=== PATIENT | male | born 1970 | race Caucasian/White ===

== ENCOUNTER → 2018-04-20 | Outpatient (CLI) | payer BC ==
--- NOTE | 2018-04-20 10:05 | Diagnostic Imaging Report ---
PROCEDURE: CT urinary tract, rule out kidney stone. TECHNIQUE: Multiple contiguous axial images were obtained through the abdomen and pelvis without the use of intravenous contrast. INDICATION: Left flank pain and hematuria for 24 hours FINDINGS: The liver, spleen, pancreas and adrenals show no acute abnormality. The kidneys, ureters and bladder are normal. The appendix is normal. No acute bowel abnormality is seen. There is no free intraperitoneal air or fluid. IMPRESSION: No acute abnormality is seen. If hematuria persists, a contrasted study may be helpful for further evaluation. Dictated by: Dictated on workstation # [id number]
== END ==
LOC: RAD 08:58
DX: R31.9 Hematuria, unspecified (principal)
CPT/HCPCS: 74176

== ENCOUNTER 2018-05-07 05:46 | Outpatient (CLI) | payer BC ==
[~2018-05-07] VITALS: Ht 172.7 cm; Wt 98.4 kg
[2018-05-07] MEDS ORDERED: CYCL10TA9 PO (14:17)
[2018-05-07] MEDS ORDERED: DULO30CA48 PO (14:17)
[2018-05-07] MEDS ORDERED: LISI10TA2 PO (14:17)
[2018-05-07] MEDS ORDERED: ATOR20TA49 PO (14:17)
== END 2018-05-07 14:20 | disposition home or self-care (01) ==
LOC: PREOP 05:46
PROVIDERS: ATTEND Surgery
DX: Z01.818 Encounter for other preprocedural examination (principal)

== ENCOUNTER 2018-05-14 06:54 | Day surgery (SDC) | payer BC ==
[~2018-05-14] VITALS: Ht 172.7 cm; Wt 98.4 kg
[~2018-05-14 06:54] MED LIST: ATOR20TA49 PO; CYCL10TA9 PO; DULO30CA48 PO; LISI10TA2 PO
--- OUTSIDE RECORDS SUMMARY | 2018-05-14 06:57 | XMS REPORT ---
Author Author CONG REINA [facility] eClinicalWorks Address Unknown Phone Unavailable Care Team Providers Care Grain Broker Name Role Phone CONG REINA CP Unavailable Allergies No Known Allergies Problems Problem Type Condition ICD-9 Code Onset Dates Condition Status Assessment Dental examination V72.2 Active Medications No Known Medications Procedures Procedure Coding System Code Date Billing Notes on claim CPT-4 EC109 2015 Results No Known Results Summary Purpose eClinicalWorks Submission
--- OUTSIDE RECORDS SUMMARY | 2018-05-14 06:57 | XMS REPORT ---
Author Author CONG REINA [facility] eClinicalWorks Address Unknown Phone Unavailable Care Team Providers Care Manager Mission Name Role Phone CONG REINA CP Unavailable Allergies, Adverse Reactions, Alerts Substance Reaction Event Type N.K.D.A. Info Not Available Non Drug Allergy Problems Problem Type Condition Code Onset Dates Condition Status Assessment Dental examination Z01.20 Active Medications No Known Medications Procedures Procedure Coding System Code Date AMALGAM-TWO SURFACES PRIMARY/PERM CPT-4 D2150 Aug 25, 2015 AMALGAM-TWO SURFACES PRIMARY/PERM CPT-4 D2150 Aug 25, 2015 Vital Signs Date/Time: Aug 25, 2015 Blood Pressure Diastolic 96 mmHg Blood Pressure Systolic 128 mmHg Results No Known Results Summary Purpose eClinicalWorks Submission
--- OUTSIDE RECORDS SUMMARY | 2018-05-14 06:57 | XMS REPORT ---
Author Author CONG REINA [facility] eClinicalWorks Address Unknown Phone Unavailable Care Team Providers Care Print Binding Worker Name Role Phone CONG REINA CP Unavailable Allergies No Known Allergies Problems Problem Type Condition ICD-9 Code Onset Dates Condition Status Assessment Dental examination V72.2 Active Medications No Known Medications Procedures Procedure Coding System Code Date AMALGAM-FOUR/MORE SURF PRIM/PERM CPT-4 D2161 Jun 16, 2015 Results No Known Results Summary Purpose eClinicalWorks Submission
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
--- OUTSIDE RECORDS SUMMARY | 2018-05-14 06:57 | XMS REPORT ---
Author Author CONG REINA Organization eClinicalWorks Address Unknown Phone Unavailable Care Team Providers Care Technical Product Manager Name Role Phone CONG REINA CP Unavailable Allergies, Adverse Reactions, Alerts Substance Reaction Event Type Sulfamethoxazole-Trimethoprim Info Not Available Drug Allergy Problems Problem Type Condition Code Onset Dates Condition Status Assessment Dental examination Z01.20 Active Medications Medication Code System Code Instructions Start Date End Date Status Dosage Hydrocodone-Acetaminophen [facility] [id number] not defined Flexall [address] [facility] [id number] not defined Procedures Procedure Coding System Code Date JOHNNY [facility] DENTUR - RESIN BASE CPT-4 D5212 April 13, 2016 Results No Known Results Summary Purpose eClinicalWorks Submission
--- OUTSIDE RECORDS SUMMARY | 2018-05-14 06:57 | XMS REPORT ---
Author Author NIRANJAN SPEARS [facility] Address Unknown Care Team Providers Care Spinning Frame Tender Name Role Phone NIRANJAN SPEARS Unavailable PROBLEMS Type Condition ICD9-CM Code ANA36-VC Code Onset Dates Condition Status SNOMED Code Problem Obesity (BMI 30.0-34.9) E66.9 Active 665765762319460 ALLERGIES Substance Reaction Event Type Date Status Sulfamethoxazole-Trimethoprim Unknown Drug Allergy Aug, Active SOCIAL HISTORY No smoking Hx information available PLAN OF CARE Activity Details Follow Up prn Reason:deliver lower partial VITAL SIGNS MEDICATIONS No Known Medications RESULTS No Results PROCEDURES Procedure Date Ordered Related Diagnosis Body Site Dental no charge Sep 12, 2016 IMMUNIZATIONS No Known Immunizations
--- OUTSIDE RECORDS SUMMARY | 2018-05-14 06:57 | XMS REPORT ---
Author NIRANJAN Garg Organization eClinicalWorks Address Unknown Phone Unavailable Care Team Providers Care Haul Driver Name Role Phone NIRANJAN SPEARS CP Unavailable Allergies, Adverse Reactions, Alerts Substance Reaction Event Type Sulfamethoxazole-Trimethoprim Info Not Available Drug Allergy Problems Problem Type Condition Code Onset Dates Condition Status Assessment Dental examination Z01.20 Active Medications No Known Medications Procedures Procedure Coding System Code Date Dental no charge CPT-4 D0099 Jul 18, 2016 Vital Signs Date/Time: Jul 18, 2016 Blood Pressure Diastolic 76 mmHg Blood Pressure Systolic 121 mmHg Results No Known Results Summary Purpose eClinicalWorks Submission
--- OUTSIDE RECORDS SUMMARY | 2018-05-14 06:57 | XMS REPORT ---
Author Author NIRANJAN SPEARS [facility] Address Unknown Care Team Providers Care Manager Research Development Name Role Phone NIRANJAN SPEARS Unavailable PROBLEMS Type Condition ICD9-CM Code JAK72-LI Code Onset Dates Condition Status SNOMED Code Problem Obesity (BMI 30.0-34.9) E66.9 Active 283211077447339 ALLERGIES Substance Reaction Event Type Date Status Sulfamethoxazole-Trimethoprim Unknown Drug Allergy Sep, Active SOCIAL HISTORY No smoking Hx information available PLAN OF CARE Activity Details Follow Up prn Reason:PROPHY VITAL SIGNS MEDICATIONS No Known Medications RESULTS No Results PROCEDURES Procedure Date Ordered Related Diagnosis Body Site Dental no charge Oct 11, 2016 IMMUNIZATIONS No Known Immunizations
--- OUTSIDE RECORDS SUMMARY | 2018-05-14 06:57 | XMS REPORT ---
Author Author GENO GUSTAFSON Organization [facility] Address [address] [place] [address] Care Team Providers Care Parks And Recreation Manager Name Role Phone GENO GUSTAFSON Unavailable PROBLEMS Type Condition ICD9-CM Code TWS95-YL Code Onset Dates Condition Status SNOMED Code Problem Obesity (BMI 30.0-34.9) E66.9 Active [id number] ALLERGIES Substance Reaction Event Type Date Status Sulfamethoxazole-Trimethoprim Unknown Drug Allergy February, Active SOCIAL HISTORY Never Assessed PLAN OF CARE Activity Details Follow Up prn Reason: VITAL SIGNS Height 68 in 2017-03-17 Weight 218.6 lbs 2017-03-17 Temperature 97.0 degrees Fahrenheit 2017-03-17 Heart Rate 60 bpm 2017-03-17 Respiratory Rate 2017-03-17 BMI 33.23 kg/m2 2017-03-17 Blood pressure systolic 120 mmHg 2017-03-17 Blood pressure diastolic 74 mmHg 2017-03-17 MEDICATIONS Medication Instructions Dosage Frequency Start Date End Date Duration Status Clindamycin HCl 300 MG Orally every 8 hrs 1 capsule 8h February,February 10 days Active RESULTS Name Result Date Reference Range A1C (IN HOUSE) 2017-03-17 A1C IN HOUSE 5.6 4.3 - 5.6 % Previous A1c NA Lot [id number] Exp date 2018-10 PROCEDURES Procedure Date Ordered Result Body Site GLYCATED HEMOGLOBIN TEST March 17, 2017 IMMUNIZATIONS No Known Immunizations MEDICAL (GENERAL) HISTORY Type Description Date Medical History Arthritis Medical History Back trouble Medical History Eye socket injuri Medical History Liver Diseare Surgical History Liver tumor removed Surgical History Tonsilectomy Surgical History eye socket Hospitalization History surgeries
[2018-05-14] MEDS ORDERED: LACTATED RINGERS 1,000 ML IV ONE (07:02)
[2018-05-14] MEDS ORDERED: LACTATED RINGERS 1,000 ML IV STA (07:15)
[2018-05-14 07:18] VITALS: BP 120/85
[2018-05-14] MEDS ORDERED: PROPOFOL INJECTION 50 ML IV ONE (07:24)
[2018-05-14] MEDS ORDERED: MIDAZOLAM 2 MG/2 ML (VERSED) VIAL ONE (07:25)
--- NOTE | 2018-05-14 08:10 | Progress Note-Pre Operative ---
Pre-Operative Progress Note H&P Reviewed The H&P was reviewed, patient examined and no changes noted. Date Seen by Provider: May 14, 2018 Time Seen by Provider: 08:00 Date H&P Reviewed: May 14, 2018 Time H&P Reviewed: 08:00 Pre-Operative Diagnosis: screening colonoscopy ADAMS VILLAREAL DO May 14, 2018 08:10
--- NOTE | 2018-05-14 08:54 | Progress Note-Post Operative ---
Post-Operative Progess Note Surgeon (s)/Criminal Researcher (s) Surgeon ADAMS VILLAREAL DO Criminal Researcher: na Pre-Operative Diagnosis screening colonoscopy Post-Operative Diagnosis cecal and rectal polyp Procedure & Operative Findings Date of Procedure 05/14/18 Procedure Performed/Findings colonoscopy with hot bx polypectomy x 2 Anesthesia Type per control specialist Estimated Blood Loss Estimated blood loss (mL): none Specimens/Packing Specimens Removed cecal polyp, rectal polyp ADAMS VILLAREAL DO May 14, 2018 08:54
--- NOTE | 2018-05-14 08:56 | Discharge Inst-Simple/Standard ---
Discharge Inst-Standard Patient Instructions/Follow Up Plan of Care/Instructions/FU: 2 weeks Nishi Activity as Tolerated: Yes Discharge Diet: Regular Diet ADAMS VILLAREAL DO May 14, 2018 08:56
[2018-05-14 09:10] VITALS: BP 131/75
[2018-05-14 09:30] VITALS: BP 134/78
[2018-05-14 10:17] VITALS: BP 134/78
--- NOTE | 2018-05-14 13:11 | Anesthesia-General Post-Op ---
MAC Patient Condition Mental Status/LOC: Same as Preop Cardiovascular: Satisfactory Nausea/Vomiting: Absent Respiratory: Satisfactory Pain: Controlled Complications: Absent Post Op Complications Complications None Follow Up Care/Instructions Patient Instructions None needed. Anesthesiology Discharge Order Discharge Order Patient is doing well, no complaints, stable vital signs, no apparent adverse anesthesia problems. No complications reported per nursing. LEONARD CRABTREE CRNA May 14, 2018 13:10
--- NOTE | 2018-05-14 14:33 | OPERATIVE REPORT ---
DATE OF SERVICE: 05/14/2018 PREOPERATIVE DIAGNOSIS: Screening colonoscopy. POSTOPERATIVE DIAGNOSIS: Colon polyps of cecum and rectum. PROCEDURE: Colonoscopy with hot biopsy polypectomy x2. SURGEON: Adams Almodovar DO ANESTHESIA: Per PROFESSOR OF FOREST PLANNING. ESTIMATED BLOOD LOSS: None. COMPLICATIONS: None. INDICATIONS: The patient is a 48-year-old male due for screening colonoscopy. He understands risks and benefits of procedure and wished to proceed with procedure. Consent was signed on the chart. DESCRIPTION OF PROCEDURE: The patient was taken to the endoscopy suite, placed in left lateral recumbent position. Timeout was performed. Digital rectal exam was performed. There were no palpable polyps, masses or ulcerations. Scope was inserted in the rectum as well as cecum with minimal difficulty. Prep was adequate. Small polyp in the cecum, which hot biopsy polypectomy was performed. Scope was then slowly retracted back. There were no polyps, masses or ulcerations within the ascending, transverse and descending colon. Within the sigmoid colon, a minimal amount of diverticulosis present. Scope was continuously retracted in the rectum where another small polyp was present, which hot biopsy polypectomy was performed. Scope was retroflexed noting no other pathology. Scope was returned to its normal position, slowly withdrawn until completely removed. The patient tolerated procedure well without any complications, taken to recovery room in stable condition. RECOMMENDATIONS: The patient was recommended repeat colonoscopy in 5 years. If he has any problems prior to that, he will be reevaluated at that time. He will see us in the office in two weeks to discuss pathology. The patient also was recommended high-fiber diet due to minimal diverticulosis. Job ID: [id number] DocumentID: [id number] Dictated Date: 05/14/2018 08:58:36 Business Economist Date: 05/14/2018 14:32:25 Dictated By: ADAMS ALMODOVAR DO
== END 2018-05-14 09:45 | disposition home or self-care (01) ==
LOC: ENDO 06:54
PROVIDERS: ATTEND Surgery
DX: Z12.11 Encounter for screening for malignant neoplasm of colon (principal); K63.5 Polyp of colon; K62.1 Rectal polyp; I10 Essential (primary) hypertension

== ENCOUNTER 2018-07-23 16:00 | Outpatient (RCR) | payer BC | END 2018-07-29 13:26 | disposition home or self-care (01) | PROVIDERS: ATTEND Nurse Practitioner | DX: M51.16 Intervertebral disc disorders with radiculopathy, lumbar region (principal) ==

== ENCOUNTER 2018-08-30 16:12 | Outpatient (RCR) | payer BC | END 2018-09-18 14:23 | disposition home or self-care (01) | PROVIDERS: ATTEND Nurse Practitioner | DX: M51.16 Intervertebral disc disorders with radiculopathy, lumbar region (principal) ==

== ENCOUNTER 2020-11-08 19:34 | Inpatient (IN) | payer BC, OTHER ==
[~2020-11-08] VITALS: Ht 172.7 cm; Wt 115.5 kg
[~2020-11-08 19:34] MED LIST changes: -DULO30CA48 PO; +DULO30CA49 PO
[2020-11-08] MEDS ORDERED: NS IV 1000 ML 1,000 ML IV SCH (19:45)
[2020-11-08] MEDS ORDERED: ONDANSETRON 4 MG/2 ML (SDV) Z0FRAN IVP ONE (19:45)
--- NOTE | 2020-11-08 19:58 | ED Cough/URI ---
General Chief Complaint: Cough/Cold/Flu Symptoms Stated Complaint: + COVID 11/01/20 Source: patient Exam Limitations: no limitations History of Present Illness Date Seen by Provider: Nov 08, 2020 Time Seen by Provider: 19:55 Initial Comments to ER with reports of persistent fever, cough, shortness of breath, nausea. He became symptomatic on 10/30/2020. Tested positive for Covid on 11/01/2020. Today would be day 9 of his illness and he does not feel any better. Primary care is been [facility] nurse practitioner out of [place]. Patient has a history of hypertension for which he sometimes takes lisinopril. He does not have any known lung disease. No diabetes. Does not wear oxygen at home. Timing/Duration: constant Severity/Quality: dry cough Associated Symptoms: cough Allergies and Home Medications Allergies Coded Allergies: Sulfa (Sulfonamide Antibiotics) (Verified Allergy, Unknown, HIVES, 05/07/18) Home Medications Atorvastatin Calcium 20 Mg Tablet, 20 MG PO DAILY, (Reported) Cyclobenzaprine HCl 10 Mg Tablet, 10 MG PO TID PRN for MUSCLE SPASMS, (Reported) Duloxetine HCl 30 Mg Capsule.dr, 30 MG PO DAILY, (Reported) Lisinopril 10 Mg Tablet, 10 MG PO DAILY, (Reported) Patient Home Medication List Home Medication List Reviewed: Yes Review of Systems Review of Systems Constitutional: see HPI, chills, fever EENTM: see HPI Respiratory: see HPI, cough, short of breath Cardiovascular: no symptoms reported Genitourinary: no symptoms reported Musculoskeletal: no symptoms reported Skin: no symptoms reported Psychiatric/Neurological: No Symptoms Reported Hematologic/Lymphatic: No Symptoms Reported Past Lgjuhhq-Mlyfwy-Piymxa Hx Patient Social History Recent Hopitalizations: No Seasonal Allergies Seasonal Allergies: Yes Past Medical History Tonsillectomy Hypertension Arthritis, Chronic Back Pain Physical Exam Vital Signs - First Documented Capillary Refill : Height: 5'8.00" Weight: 217lbs. 0.0oz. 98.667206lq; 33.0 BMI Method: General Appearance: WD/WN, no apparent distress, obese, other (Oxygen is 92% on room air on arrival dropped to 89% on room air after about 2 or 3 minutes.) Eyes: Bilateral Eye Normal Inspection, Bilateral Eye PERRL, Bilateral Eye EOMI Neck: non-tender, full range of motion Respiratory: lungs clear, normal breath sounds, no respiratory distress, no accessory muscle use Gastrointestinal: normal bowel sounds, non tender, soft Extremities: normal range of motion, non-tender Neurologic/Psychiatric: alert, normal mood/affect, oriented x 3 Skin: normal color, warm/dry Progress/Results/Core Measures Suspected Sepsis SIRS Temperature: Pulse: Respiratory Rate: Laboratory Tests 11/08/20 19:57: White Blood Count 4.7 Blood Pressure / Mean: Laboratory Tests 11/08/20 19:57: Creatinine 1.08, Platelet Count 148, Total Bilirubin 0.3 Results/Orders Lab Results Laboratory Tests Test 11/08/20 19:57 Range/Units White Blood Count 4.7 4.3-11.0 10^3/uL Red Blood Count 5.32 4.30-5.52 10^6/uL Hemoglobin 15.5 13.3-17.7 g/dL Hematocrit 46 40-54 % Mean Corpuscular Volume 87 80-99 fL Mean Corpuscular Hemoglobin 29 25-34 pg Mean Corpuscular Hemoglobin Concent 34 32-36 g/dL Red Cell Distribution Width 12.4 10.0-14.5 % Platelet Count 148 130-400 10^3/uL Mean Platelet Volume 10.7 9.0-12.2 fL Immature Granulocyte % (Auto) 1 % Neutrophils (%) (Auto) 63 42-75 % Lymphocytes (%) (Auto) 28 12-44 % Monocytes (%) (Auto) 8 0-12 % Eosinophils (%) (Auto) 0 0-10 % Basophils (%) (Auto) 0 0-10 % Neutrophils # (Auto) 3.0 1.8-7.8 10^3/uL Lymphocytes # (Auto) 1.3 1.0-4.0 10^3/uL Monocytes # (Auto) 0.4 0.0-1.0 10^3/uL Eosinophils # (Auto) 0.0 0.0-0.3 10^3/uL Basophils # (Auto) 0.0 0.0-0.1 10^3/uL Immature Granulocyte # (Auto) 0.0 0.0-0.1 10^3/uL D-Dimer 0.48 0.00-0.49 UG/ML Sodium Level 139 135-145 MMOL/L Potassium Level 3.7 3.6-5.0 MMOL/L Chloride Level 102 98-107 MMOL/L Carbon Dioxide Level 26 21-32 MMOL/L Anion Gap 11 5-14 MMOL/L Blood Urea Nitrogen 10 7-18 MG/DL Creatinine 1.08 0.60-1.30 MG/DL Estimat Glomerular Filtration Rate > 60 BUN/Creatinine Ratio 9 Glucose Level 102 70-105 MG/DL Calcium Level 8.5 8.5-10.1 MG/DL Corrected Calcium 8.5 8.5-10.1 MG/DL Total Bilirubin 0.3 0.1-1.0 MG/DL Aspartate Amino Transf (AST/SGOT) 37 H 5-34 U/L Alanine Aminotransferase (ALT/SGPT) 71 H 0-55 U/L Alkaline Phosphatase 90 40-136 U/L C-Reactive Protein High Sensitivity 4.07 H 0.00-0.50 MG/DL Total Protein 7.0 6.4-8.2 GM/DL Albumin 4.0 3.2-4.5 GM/DL Procalcitonin 0.08 <0.10 NG/ML My Orders Orders - ALIE PITT APRN Cbc With Automated Diff (11/08/20 19:43) Comprehensive Metabolic Panel (11/08/20 19:43) Procalcitonin (Pct) (11/08/20 19:43) Chest 1 View, Ap/Pa Only (11/08/20 19:43) Hs C Reactive Protein (11/08/20 19:43) Ed Iv/Invasive Line Start (11/08/20 19:43) Fibrin Degradation Products (11/08/20 19:43) Ondansetron Injection (Zofran Injectio (11/08/20 19:45) Ns Iv 1000 Ml (Sodium Chloride 0.9%) (11/08/20 19:45) Ibuprofen Tablet (Motrin Tablet) (11/08/20 20:00) Medications Given in ED Current Medications Medications Dose Ordered Sig/Cameron Route Start Time Stop Time Status Last Admin Dose Admin Ibuprofen 800 mg ONCE ONCE PO 11/08/20 20:00 11/08/20 20:01 DC 11/08/20 20:04 800 MG Ondansetron HCl 8 mg ONCE ONCE IVP 11/08/20 19:45 11/08/20 19:46 DC 11/08/20 20:01 8 MG Vital Signs/I&O 11/08/20 11/08/20 11/08/20 19:40 19:40 20:04 Temp 38.8 38.1 Pulse 70 Resp 18 B/P (MAP) 129/90 (103) Pulse Ox 93 O2 Delivery Room Air Room Air Capillary Refill : Diagnostic Imaging Diagonstic Imaging: CT Comments NAME: EVETTE STRINGER MED REC#: [id number] PT STATUS: REG ER : 1970 PHYSICIAN: ALIE PITT APRN ADMIT DATE: 11/08/20/ER Draft Date of Exam:11/08/20 CHEST 1 VIEW, AP/PA ONLY INDICATION: Shortness of breath and cough, Covid positive. Frontal chest obtained at 08:07 p.m. Heart and mediastinal silhouette are normal in appearance. The lungs show no discrete infiltrate. There is no pneumothorax or pleural fluid. IMPRESSION: No acute process in the chest, no significant infiltrate seen. Dictated on workstation # [id number] Dict: 11/08/202014 Trans: 11/08/[address] [place] [phone] Interpreted by: EMY FELICIANO MD Electronically signed by: Departure Impression Primary Impression: COVID-19 Additional Impression: Hypoxia Disposition: ADMITTED INPATIENT Condition: Stable Admissions Decision to Admit Reason: Admit from ER (General) Decision to Admit/Date: Nov 08, 2020 Time/Decision to Admit Time: 19:59 Departure-Patient Inst. Referrals: JUAN DICKINSON DO (PCP) Primary Care Physician ALIE PITT APRN Nov 08, 2020 19:58
[2020-11-08] MEDS ORDERED: IBUPROFEN 800 MG (MOTRIN) TAB PO ONE (20:00)
--- NOTE | 2020-11-08 20:18 | Diagnostic Imaging Report ---
INDICATION: Shortness of breath and cough, Covid positive. Frontal chest obtained at 08:07 p.m. Heart and mediastinal silhouette are normal in appearance. The lungs show no discrete infiltrate. There is no pneumothorax or pleural fluid. IMPRESSION: No acute process in the chest, no significant infiltrate seen. Dictated by: Dictated on workstation # [id number]
[2020-11-08 20:30] LABS: BASOPHILS % (AUTO) 0 % (0-10); EOSINOPHILS % (AUTO) 0 % (0-10); HEMATOCRIT 46 % (40-54); HEMOGLOBIN 15.5 g/dL (13.3-17.7); LYMPHOCYTES # (AUTO) 1.3 10^3/uL (1.0-4.0); LYMPHOCYTES % (AUTO) 28 % (12-44); MEAN CORPUSCULAR HEMOGLOBIN 29 pg (25-34); MEAN CORPUSCULAR HGB CONC 34 g/dL (32-36); MEAN CORPUSCULAR VOLUME 87 fL (80-99); MEAN PLATELET VOLUME 10.7 fL (9.0-12.2); MONOCYTES # (AUTO) 0.4 10^3/uL (0.0-1.0); MONOCYTES % (AUTO) 8 % (0-12); NEUTROPHILS % (AUTO) 63 % (42-75); PLATELET COUNT 148 10^3/uL (130-400); WHITE BLOOD COUNT 4.7 10^3/uL (4.3-11.0)
[2020-11-08 20:43] LABS: CHLORIDE 102 MMOL/L (98-107); POTASSIUM 3.7 MMOL/L (3.6-5.0); SODIUM 139 MMOL/L (135-145)
[2020-11-08 20:44] LABS: CALCIUM 8.5 MG/DL (8.5-10.1)
[2020-11-08 20:45] LABS: GLUCOSE 102 MG/DL (70-105)
[2020-11-08 20:47] LABS: BILIRUBIN,TOTAL 0.3 MG/DL (0.1-1.0); CARBON DIOXIDE 26 MMOL/L (21-32)
[2020-11-08 20:49] LABS: ALKALINE PHOSPHATASE 90 U/L (40-136); CREATININE SERUM 1.08 MG/DL (0.60-1.30); GFR ESTIMATED > 60
[2020-11-08 20:50] LABS: BUN/CREATININE RATIO 9
[2020-11-08 20:52] LABS: ALANINE AMINOTRANSFERASE 71 U/L (0-55)
--- NOTE | 2020-11-08 21:37 | NUR ---
pt's updated on plan for admission at # [phone]
--- NOTE | 2020-11-08 22:35 | NUR ---
EVETTE STRINGER admitted to room 430-1, with an admitting diagnosis of Covid-19 & Hypoxia, on 11/08/20 from er via wc, accompanied by PCT's x 2. EVETTE STRINGER introduced to surroundings, call light, bed controls, phone, TV, temperature control, lights, meal times, smoking policy, visitor policy, side rail policy, bathrooms and showers. Patient Rights given to patient in the handbook. EVETTE STRINGER verbalizes understanding that [facility] is not responsible for the loss or damage to any personal effects or valuables that are kept in the patients possession during their hospitalization.
[2020-11-08 22:40] VITALS: BP 116/64
[2020-11-08] MEDS ORDERED: LACTATED RINGERS 1,000 ML IV ONE (22:50)
[2020-11-08] MEDS: dexAMETHasone 6 MG TAB (DECADRON) PO SCH (23:15)
[2020-11-08] MEDS: ENOXAPARIN 40 MG/0.4 ML (LOVENOX) SYR SC SCH (23:15)
[2020-11-08] MEDS ORDERED: ONDANSETRON 4 MG/2 ML (SDV) Z0FRAN IV PRN (23:15)
[2020-11-08] MEDS: LACTATED RINGERS 1,000 ML IV SCH (23:15)
[2020-11-08] MEDS ORDERED: IBUPROFEN 800 MG (MOTRIN) TAB PO PRN (23:15)
[2020-11-08 23:48] VITALS: BP 129/30
[2020-11-09] VITALS (10 sets, daily range): BP systolic 109–133; BP diastolic 60–75
[2020-11-09] MEDS ORDERED: RT-ALBUTEROL INHALER HFA (VENTOLIN HFA) 18 GM IH PRN
[2020-11-09 05:46] LABS: BASOPHILS % (AUTO) 0 % (0-10); EOSINOPHILS % (AUTO) 0 % (0-10); HEMATOCRIT 48 % (40-54); HEMOGLOBIN 15.6 g/dL (13.3-17.7); LYMPHOCYTES # (AUTO) 0.8 10^3/uL (1.0-4.0); LYMPHOCYTES % (AUTO) 20 % (12-44); MEAN CORPUSCULAR HEMOGLOBIN 28 pg (25-34); MEAN CORPUSCULAR HGB CONC 32 g/dL (32-36); MEAN CORPUSCULAR VOLUME 88 fL (80-99); MEAN PLATELET VOLUME 10.9 fL (9.0-12.2); MONOCYTES # (AUTO) 0.1 10^3/uL (0.0-1.0); MONOCYTES % (AUTO) 3 % (0-12); NEUTROPHILS % (AUTO) 75 % (42-75); PLATELET COUNT 134 10^3/uL (130-400)
[2020-11-09 05:51] LABS: ALBUMIN 3.9 GM/DL (3.2-4.5); CHLORIDE 104 MMOL/L (98-107); POTASSIUM 4.3 MMOL/L (3.6-5.0); SODIUM 139 MMOL/L (135-145)
[2020-11-09 05:52] LABS: CALCIUM 8.8 MG/DL (8.5-10.1)
[2020-11-09 05:54] LABS: GLUCOSE 169 MG/DL (70-105); TOTAL PROTEIN 6.8 GM/DL (6.4-8.2)
[2020-11-09 05:55] LABS: BILIRUBIN,TOTAL 0.2 MG/DL (0.1-1.0); CARBON DIOXIDE 26 MMOL/L (21-32)
[2020-11-09 05:57] LABS: ALKALINE PHOSPHATASE 90 U/L (40-136); CREATININE SERUM 1.24 MG/DL (0.60-1.30); GFR ESTIMATED > 60
[2020-11-09 05:58] LABS: BUN/CREATININE RATIO 8
[2020-11-09 06:00] LABS: ALANINE AMINOTRANSFERASE 65 U/L (0-55)
[2020-11-09] MEDS ORDERED: CHOL20002 PO (09:13)
[2020-11-09] MEDS ORDERED: ASCO-262 PO (09:13)
[2020-11-09] MEDS ORDERED: ZINC50TA58 PO (09:13)
[2020-11-09] MEDS ORDERED: ONDA-105 PO (09:13)
--- NOTE | 2020-11-09 09:14 | NUR ---
SPOKE WITH THE PT (CALLED THE ROOM PHONE) AND CALLED GABE TO COMPLETE THE MED REC PT DENIES TAKING ANY PRESCRIPTION MEDICATION OTHER THEN THE ZOFRAN (PRN) THAT HE WAS RECENTLY PRESCRIBED. IN THE ED PROVIDER REPORT IT MENTIONS THE PT SAYING HE OCCASIONALLY TAKES LISINOPRIL. WHEN I ASKED THE PT ABOUT THIS HE LET ME KNOW HE HASNT TAKEN ANY IN SEVERAL MONTHS. GABE LAST FILLED LISINOPRIL 10MG ON 11-27-2019 #90 OTC MEDS: VIT D VIT C ZINC
--- NOTE | 2020-11-09 14:22 | History & Physical-Hospitalist ---
History of Present Illness HPI/Chief Complaint Pt is a 50yoCM who presented to the ER due to shortness of breath. He reports that he developed symptoms of COVID on 10/30/20 and was tested positive on 11/01/20. He states that since that time he had worsened and had a "hard time kicking it." He reports fevers still with nausea and weakness. This morning he denied any new complaints and actually thinks he is feeling better. We discussed treatment options. He is currently on decadron but declines remdesivir and would like to think about convalescent plasma. Source: patient Exam Limitations: no limitations Date Seen 11/09/20 Time Seen by a Provider: 14:22 Attending Physician Iftikhar Hall MD PCP Bharath Musa DO Referring Physician Date of Admission Nov 08, 2020 at 21:16 Home Medications & Allergies Home Medications Reviewed patient Home Medication Reconciliation performed by pharmacy medication reconciliations hydro plant technician and/or nursing. Patients Allergies have been reviewed. Allergies Allergies Coded Allergies Sulfa (Sulfonamide Antibiotics) (Verified Allergy, Unknown, HIVES, 05/07/18) Past Cyxswgw-Meqybv-Hbbbkf Hx Past Med/Social Hx: Reviewed Nursing Past Med/Soc Hx Patient Social History Marrital Status: Alcohol Use: Occasionally Uses Recreational Drug Use: No Smoking Status: Never a Smoker 2nd Hand Smoke Exposure: No Recent Foreign Travel: No Contact w/other who traveled: No Recent Hopitalizations: No Recent Infectious Disease Expo: No Seasonal Allergies Seasonal Allergies: Yes Past Medical History Surgeries: Tonsillectomy Cardiac: Hypertension Musculoskeletal: Arthritis, Chronic Back Pain History of Blood Disorders: No Family History Reviewed Nursing Family Hx No Pertinent Family Hx Review of Systems Constitutional: fever, malaise EENTM: no symptoms reported Respiratory: cough, short of breath Cardiovascular: No chest pain, No edema, No palpitations Gastrointestinal: No abdominal pain; nausea Genitourinary: no symptoms reported Musculoskeletal: no symptoms reported Skin: no symptoms reported Psychiatric/Neurological: No Symptoms Reported Physical Exam Physical Exam Vital Signs Vital Signs - First Documented 11/08/20 11/08/20 22:19 23:48 O2 Flow Rate 2.00 FiO2 21 Capillary Refill : Less Than 3 SecondsLess Than 3 Seconds Height, Weight, BMI Height: 5'8.00" Weight: 217lbs. 0.0oz. [id number]; 38.72 BMI Method: General Appearance: No Apparent Distress, WD/WN, Obese HEENT: PERRL/EOMI, Moist Mucous Membranes; No Scleral Icterus (L), No Scleral Icterus (R) Neck: Normal Inspection, Supple Respiratory: Lungs Clear, No Accessory Muscle Use; No Crackles; Other (on 2lpm ) Cardiovascular: Regular Rate, Rhythm, No JVD, No Murmur, Normal Peripheral Pulses Gastrointestinal: Normal Bowel Sounds, Non Tender, Soft Extremity: Normal Capillary Refill, No Calf Tenderness, No Pedal Edema Neurologic/Psychiatric: Alert, Oriented x3, Normal Mood/Affect Skin: Normal Color, Warm/Dry Results Results/Procedures Labs Laboratory Tests 11/08/20 19:57 11/09/20 05:15 Patient resulted labs reviewed. Imaging: Reviewed Imaging Report [facility] [place], [place] NAME: EVETTE STRINGER [facility] REC#: [id number] PT STATUS: ADM IN : 1970 PHYSICIAN: ALIE PITT APRN ADMIT DATE: 11/08/20 Signed Date of Exam:11/08/20 CHEST 1 VIEW, AP/PA ONLY INDICATION: Shortness of breath and cough, Covid positive. Frontal chest obtained at 08:07 p.m. Heart and mediastinal silhouette are normal in appearance. The lungs show no discrete infiltrate. There is no pneumothorax or pleural fluid. IMPRESSION: No acute process in the chest, no significant infiltrate seen. Dictated by: Dictated on workstation # [id number] Dict: 11/08/202014 Trans: 11/08/202210 [facility] [id number] Interpreted by: EMY FELICIANO MD Electronically signed by: EMY FELICIANO MD 11/08/202210 Assessment/Plan Admission Diagnosis COVID19 Admission Status: Observation Reason for Inpatient Admission: see below Assessment and Plan COVID19 with hypoxia Continue oxygen supplementation, wean as able Declined remdesivir and convalescent plasma Continue decadron MAT protocol IS Lovenox HTN intermittently takes Lisinopril at home trend, BP well controlled DVT ppx: Chasidyx DANIEL VIRK MD Nov 09, 2020 14:22
--- NOTE | 2020-11-09 15:08 | NUR ---
"RD ASSESSMENT PMHx: HTN; PT INTERACTION: Received dietary consult for MST score. Note pt currently in COVID isolation per chart review. Note all diet information for consult is per Terell RN, or per chart review. Terell states current appetite appears good. Note avg PO intake 100% x2meal, per chart review. Terell states no issues with nausea, vomiting, constipation, or diarrhea that he is aware of, and that his last BM was 11/08. Note not currently on bowel regimen per chart review. Note unable to determine recent wt hx, per chart review. Note unable to complete visual assessment d/t isolation precautions. Note pt has BMI of 38.7 (Obese class II for age). Given PO intake, wt hx, and no visual assessment, it is difficult to determine if pt meets criteria for malnutrition per ASPEN guidelines. Given PO intake, it is unlikely pt is malnourished. Not abnormal lab values of glu 169 H, and ALT 65 H, per chart review. Est. kcal needs: 7289-4509 kcal | 15-18 kcal/kg Est. Pro needs: 93-116 g Pro | 0.8-1.0 g Pro/kg PES STATEMENT: Given current PO intake, no nutrition diagnosis at this time (NO-1.1). INTERVENTION: Continue with current diet order of Regular diet. Will continue to follow and reassess as pt needs, intake, and status change. Sunil WALLER, MS RD LD [phone] cell"
[2020-11-09] MEDS ORDERED: NS IV 500 ML 500 ML IV SCH (17:15)
[2020-11-09] MEDS ORDERED: REMDESIVIR INJ 200 MG in NS (IVPB) 210 ML IV ONE ×2 (17:15→20:15)
[2020-11-09] MEDS: LACTATED RINGERS 1,000 ML IV SCH (19:20)
[2020-11-09] MEDS: ENOXAPARIN 40 MG/0.4 ML (LOVENOX) SYR SC SCH (20:20)
[2020-11-09] MEDS: dexAMETHasone 6 MG TAB (DECADRON) PO SCH (20:20)
[2020-11-10 04:31] VITALS: BP 132/70
[2020-11-10 06:31] LABS: ALBUMIN 4.1 GM/DL (3.2-4.5); CHLORIDE 105 MMOL/L (98-107); POTASSIUM 4.5 MMOL/L (3.6-5.0); SODIUM 143 MMOL/L (135-145)
[2020-11-10 06:34] LABS: GLUCOSE 146 MG/DL (70-105); TOTAL PROTEIN 7.2 GM/DL (6.4-8.2)
[2020-11-10 06:35] LABS: CARBON DIOXIDE 27 MMOL/L (21-32)
[2020-11-10 06:36] LABS: BILIRUBIN,TOTAL 0.3 MG/DL (0.1-1.0)
[2020-11-10 06:37] LABS: ALKALINE PHOSPHATASE 87 U/L (40-136); CREATININE SERUM 1.02 MG/DL (0.60-1.30); GFR ESTIMATED > 60
[2020-11-10 06:38] LABS: BUN/CREATININE RATIO 11
[2020-11-10 06:40] LABS: ALANINE AMINOTRANSFERASE 55 U/L (0-55)
[2020-11-10] MEDS ORDERED: FLU QUADRIvalent (3YOA+) 60 mcg/0.5 ml 2020-21 (AFLURIA) IM ONE (07:30)
[2020-11-10 08:00] VITALS: BP 141/75
[2020-11-10] MEDS: ZINC SULFATE 220 MG CAPSULE PO SCH (09:42)
[2020-11-10] MEDS: VITAMIN D3 25 MCG (1,000 UNITS) TABLET PO SCH (09:42)
[2020-11-10] MEDS: ASCORBIC ACID (VIT C) 500 MG TABLET PO SCH (09:42)
--- NOTE | 2020-11-10 10:04 | Progress Note - Hospitalist ---
Subjective HPI/CC On Admission Date Seen by Provider: Nov 10, 2020 Time Seen by Provider: 10:02 Pt is a 50yoCM who presented to the ER due to shortness of breath. He reports that he developed symptoms of COVID on 10/30/20 and was tested positive on 11/01/20. He states that since that time he had worsened and had a "hard time kicking it." He reports fevers still with nausea and weakness. This morning he denied any new complaints and actually thinks he is feeling better. We discussed treatment options. He is currently on decadron but declines remdesivir and would like to think about convalescent plasma. Subjective/Events-last exam Pt reports feeling well. Still on a couple liters of oxygen. Feeling better that yesterday. Objective Exam Vital Signs Vital Signs Date Time Temp Pulse Resp B/P (MAP) Pulse Ox O2 Delivery O2 Flow Rate FiO2 11/10/20 08:00 Nasal Cannula 2.00 11/10/20 08:00 35.4 65 20 141/75 (97) 95 11/08/20 23:48 21 Capillary Refill : Less Than 3 SecondsLess Than 3 Seconds General Appearance: No Apparent Distress, Chronically ill, Obese Respiratory: Lungs Clear, No Respiratory Distress Cardiovascular: Regular Rate, Rhythm, No Murmur Gastrointestinal: Normal Bowel Sounds, Non Tender, Soft Neurologic/Psychiatric: Alert, Oriented x3 Results/Procedures Lab Laboratory Tests 11/10/20 05:47 Patient resulted labs reviewed. Imaging: Reviewed Imaging Report Assessment/Plan Assessment and Plan Assess & Plan/Chief Complaint COVID19 with hypoxia Continue oxygen supplementation, wean as able Agreed to remdesivir and convalescent plasma after discussion with family, s/p 1 unit CP Continue decadron MAT protocol IS Lovenox HTN intermittently takes Lisinopril at home trend, BP well controlled DVT ppx: Lovenox DANIEL VIRK MD Nov 10, 2020 10:04
[2020-11-10 12:00] VITALS: BP 138/75
[2020-11-10 16:22] VITALS: BP 131/69
[2020-11-10] MEDS: REMDESIVIR INJ 100 MG in NS (IVPB) 230 ML IV SCH (17:12)
[2020-11-10 20:22] VITALS: BP 132/71
[2020-11-10] MEDS: ENOXAPARIN 40 MG/0.4 ML (LOVENOX) SYR SC SCH (20:30)
[2020-11-10] MEDS: dexAMETHasone 6 MG TAB (DECADRON) PO SCH (20:30)
[2020-11-10] MEDS: DOCUSATE SODIUM 100 MG (COLACE) CAP PO SCH (20:43)
[2020-11-10 23:40] VITALS: BP 136/76
[2020-11-11 04:01] VITALS: BP 111/53
[2020-11-11 07:24] LABS: ALANINE AMINOTRANSFERASE 55 U/L (0-55); ALKALINE PHOSPHATASE 89 U/L (40-136); BILIRUBIN,TOTAL 0.3 MG/DL (0.1-1.0); BUN/CREATININE RATIO 16; CALCIUM 9.1 MG/DL (8.5-10.1); CARBON DIOXIDE 25 MMOL/L (21-32); CHLORIDE 102 MMOL/L (98-107); CREATININE SERUM 1.06 MG/DL (0.60-1.30); GFR ESTIMATED > 60; GLUCOSE 140 MG/DL (70-105); POTASSIUM 4.3 MMOL/L (3.6-5.0); SODIUM 140 MMOL/L (135-145); TOTAL PROTEIN 7.2 GM/DL (6.4-8.2)
[2020-11-11] MEDS: VITAMIN D3 25 MCG (1,000 UNITS) TABLET PO SCH (08:13)
[2020-11-11] MEDS: ZINC SULFATE 220 MG CAPSULE PO SCH (08:13)
[2020-11-11] MEDS: DOCUSATE SODIUM 100 MG (COLACE) CAP PO SCH ×2 (08:13→19:31)
[2020-11-11] MEDS: ASCORBIC ACID (VIT C) 500 MG TABLET PO SCH (08:13)
[2020-11-11 08:36] VITALS: BP 115/59
--- NOTE | 2020-11-11 09:49 | Progress Note - Hospitalist ---
Subjective HPI/CC On Admission Date Seen by Provider: Nov 11, 2020 Time Seen by Provider: 09:44 Pt is a 50yoCM who presented to the ER due to shortness of breath. He reports that he developed symptoms of COVID on 10/30/20 and was tested positive on 11/01/20. He states that since that time he had worsened and had a "hard time kicking it." He reports fevers still with nausea and weakness. This morning he denied any new complaints and actually thinks he is feeling better. We discussed treatment options. He is currently on decadron but declines remdesivir and would like to think about convalescent plasma. Subjective/Events-last exam Pt reports doing well. Feeling better overall. Currently has his oxygen off to eat. RN states he takes it off regularly though. Objective Exam Vital Signs Vital Signs Date Time Temp Pulse Resp B/P (MAP) Pulse Ox O2 Delivery O2 Flow Rate FiO2 11/11/20 08:36 36.4 53 18 115/59 (77) 95 Nasal Cannula 2.00 11/08/20 23:48 21 Capillary Refill : Less Than 3 SecondsLess Than 3 Seconds General Appearance: No Apparent Distress, WD/WN, Obese Respiratory: Lungs Clear, No Accessory Muscle Use, No Respiratory Distress Cardiovascular: Regular Rate, Rhythm, No Murmur Gastrointestinal: Normal Bowel Sounds, Non Tender, Soft Neurologic/Psychiatric: Alert, Oriented x3 Results/Procedures Lab Laboratory Tests 11/11/20 06:43 Patient resulted labs reviewed. Imaging: Reviewed Imaging Report Assessment/Plan Assessment and Plan Assess & Plan/Chief Complaint COVID19 with hypoxia Continue oxygen supplementation, wean as able Continue remdesivir s/p convalescent plasma after discussion with family, s/p 1 unit CP Continue decadron MAT protocol IS Lovenox HTN intermittently takes Lisinopril at home trend, BP well controlled DVT ppx: Lovenox DANIEL VIRK MD Nov 11, 2020 09:49
[2020-11-11 12:00] VITALS: BP 115/58
[2020-11-11 15:34] VITALS: BP 107/60
[2020-11-11] MEDS: REMDESIVIR INJ 100 MG in NS (IVPB) 230 ML IV SCH (16:24)
[2020-11-11 19:26] VITALS: BP 128/79
[2020-11-11] MEDS: dexAMETHasone 6 MG TAB (DECADRON) PO SCH (19:30)
[2020-11-11] MEDS: ENOXAPARIN 40 MG/0.4 ML (LOVENOX) SYR SC SCH (19:30)
[2020-11-11 23:59] VITALS: BP 117/58
[2020-11-12 04:01] VITALS: BP 110/63
[2020-11-12 06:51] LABS: ALANINE AMINOTRANSFERASE 62 U/L (0-55); ALBUMIN 3.7 GM/DL (3.2-4.5); ALKALINE PHOSPHATASE 87 U/L (40-136); BILIRUBIN,TOTAL 0.2 MG/DL (0.1-1.0); BUN/CREATININE RATIO 17; CARBON DIOXIDE 24 MMOL/L (21-32); CHLORIDE 104 MMOL/L (98-107); CREATININE SERUM 0.96 MG/DL (0.60-1.30); GFR ESTIMATED > 60; GLUCOSE 199 MG/DL (70-105); POTASSIUM 4.1 MMOL/L (3.6-5.0); SODIUM 139 MMOL/L (135-145); TOTAL PROTEIN 6.4 GM/DL (6.4-8.2)
[2020-11-12] MEDS: VITAMIN D3 25 MCG (1,000 UNITS) TABLET PO SCH (07:40)
[2020-11-12] MEDS: ZINC SULFATE 220 MG CAPSULE PO SCH (07:40)
[2020-11-12] MEDS: ASCORBIC ACID (VIT C) 500 MG TABLET PO SCH (07:40)
[2020-11-12] MEDS: DOCUSATE SODIUM 100 MG (COLACE) CAP PO SCH ×2 (07:40→19:50)
[2020-11-12 08:04] VITALS: BP 127/59
--- NOTE | 2020-11-12 10:23 | NUR ---
Notified when he is discharged tomorrow he will be out of isolation
--- NOTE | 2020-11-12 10:24 | NUR ---
PATIENT FAMILY MEMBER (MICHELLE) UPDATED VIA PHONE CALL AT THIS TIME. THIS RN WILL CONT TO MONITOR THIS PATIENT.
--- NOTE | 2020-11-12 10:28 | Progress Note - Hospitalist ---
Subjective HPI/CC On Admission Date Seen by Provider: Nov 12, 2020 Time Seen by Provider: 10:26 Pt is a 50yoCM who presented to the ER due to shortness of breath. He reports that he developed symptoms of COVID on 10/30/20 and was tested positive on 11/01/20. He states that since that time he had worsened and had a "hard time kicking it." He reports fevers still with nausea and weakness. This morning he denied any new complaints and actually thinks he is feeling better. We discussed treatment options. He is currently on decadron but declines remdesivir and would like to think about convalescent plasma. Subjective/Events-last exam Pt reports doing well. No complaints. Off oxygen and was satting 94%when Rn arielle ck it earlier. Objective Exam Vital Signs Vital Signs Date Time Temp Pulse Resp B/P (MAP) Pulse Ox O2 Delivery O2 Flow Rate FiO2 11/12/20 08:04 36.6 56 18 127/59 (81) 96 Nasal Cannula 2.00 11/08/20 23:48 21 Capillary Refill : Less Than 3 SecondsLess Than 3 Seconds General Appearance: No Apparent Distress, WD/WN Respiratory: Lungs Clear, No Accessory Muscle Use Cardiovascular: Regular Rate, Rhythm, No Murmur Neurologic/Psychiatric: Alert, Oriented x3 Results/Procedures Lab Laboratory Tests 11/12/20 05:37 Patient resulted labs reviewed. Imaging: Reviewed Imaging Report Assessment/Plan Assessment and Plan Assess & Plan/Chief Complaint COVID19 with hypoxia Continue oxygen supplementation, wean as able Continue remdesivir dose 4/5 s/p convalescent plasma after discussion with family, s/p 1 unit CP Continue decadron MAT protocol IS Lovenox Hopefully home tomorrow if continues to do well HTN intermittently takes Lisinopril at home trend, BP well controlled DVT ppx: Lovenox DANIEL VIRK MD Nov 12, 2020 10:28
[2020-11-12 10:54] VITALS: BP 127/59
[2020-11-12] MEDS: RT-ALBUTEROL INHALER HFA (VENTOLIN HFA) 18 GM IH SCH ×2 (14:57→18:58)
[2020-11-12 15:59] VITALS: BP 116/70
[2020-11-12] MEDS: REMDESIVIR INJ 100 MG in NS (IVPB) 230 ML IV SCH (18:30)
[2020-11-12] MEDS: ENOXAPARIN 40 MG/0.4 ML (LOVENOX) SYR SC SCH (19:50)
[2020-11-12] MEDS: dexAMETHasone 6 MG TAB (DECADRON) PO SCH (19:51)
[2020-11-13 00:16] VITALS: BP 113/65
[2020-11-13] MEDS: RT-ALBUTEROL INHALER HFA (VENTOLIN HFA) 18 GM IH SCH ×2 (02:43→08:36)
[2020-11-13 06:44] LABS: ALBUMIN 3.6 GM/DL (3.2-4.5); CHLORIDE 103 MMOL/L (98-107); POTASSIUM 3.9 MMOL/L (3.6-5.0); SODIUM 139 MMOL/L (135-145)
[2020-11-13 06:45] LABS: CALCIUM 8.4 MG/DL (8.5-10.1)
[2020-11-13 06:46] LABS: GLUCOSE 300 MG/DL (70-105); TOTAL PROTEIN 6.4 GM/DL (6.4-8.2)
[2020-11-13 06:47] LABS: CARBON DIOXIDE 25 MMOL/L (21-32)
[2020-11-13 06:48] LABS: BILIRUBIN,TOTAL 0.2 MG/DL (0.1-1.0)
[2020-11-13 06:50] LABS: ALKALINE PHOSPHATASE 89 U/L (40-136); CREATININE SERUM 1.08 MG/DL (0.60-1.30); GFR ESTIMATED > 60
[2020-11-13 06:51] LABS: BUN/CREATININE RATIO 15
[2020-11-13 06:53] LABS: ALANINE AMINOTRANSFERASE 98 U/L (0-55)
[2020-11-13 08:08] VITALS: BP 121/71
[2020-11-13] MEDS: VITAMIN D3 25 MCG (1,000 UNITS) TABLET PO SCH (09:34)
[2020-11-13] MEDS: ZINC SULFATE 220 MG CAPSULE PO SCH (09:34)
[2020-11-13] MEDS: ASCORBIC ACID (VIT C) 500 MG TABLET PO SCH (09:34)
[2020-11-13] MEDS: DOCUSATE SODIUM 100 MG (COLACE) CAP PO SCH (09:34)
[2020-11-13] MEDS ORDERED: ALBU18HF2 IH (09:37)
[2020-11-13] MEDS ORDERED: DEXA6TAB PO (09:37)
--- NOTE | 2020-11-13 09:38 | Discharge Inst-Simple/Standard ---
Discharge Inst-Standard Patient Instructions/Follow Up Plan of Care/Instructions/FU: Please continue to take your medications as written. Please follow up with your primary care doctor to follow up this hospital stay. Activity as Tolerated: Yes Discharge Diet: No Restrictions Return to The Hospital For: Chest pain, shortness of breath, fever, low oxygen saturations, confusion, weakness, if you feel you are getting worse. DANIEL VIRK MD Nov 13, 2020 09:38
--- NOTE | 2020-11-13 11:22 | NUR ---
Patient walked 400 feet on room air did not need oxygen at this time. Addendum: 11/13/20 at 1122 by LEONELA STANLEY RT Amended: Links added.
[2020-11-13] MEDS: REMDESIVIR INJ 100 MG in NS (IVPB) 230 ML IV SCH (13:34)
== END 2020-11-13 15:30 | disposition home or self-care (01) | DRG 179 ==
LOC: EDUNIT# 19:34 → ER 19:36 → 4TH 21:16
PROVIDERS: ADMIT Internal Medicine; ATTEND Internal Medicine
PROC: XW033E5 Introduction of Remdesivir Anti-infective into Peripheral Vein, Percutaneous Approach, New Technology Group 5 (ICD-10-PCS; principal; 2020-11-09)
PROC: XW13325 Transfusion of Convalescent Plasma (Nonautologous) into Peripheral Vein, Percutaneous Approach, New Technology Group 5 (ICD-10-PCS; 2020-11-09)
DX: U07.1 COVID-19 (principal); I10 Essential (primary) hypertension; M19.90 Unspecified osteoarthritis, unspecified site; G89.29 Other chronic pain; M54.9 Dorsalgia, unspecified; Z88.2 Allergy status to sulfonamides; Z73.0 Burn-out
CPT/HCPCS: 36415; 71045; 80053; 84145; 85025; 85379; 86141; 86900; 86901; 90686; 94640; 94664; 94760; 94761

== ENCOUNTER 2021-09-26 15:46 | Outpatient (RCR) | payer OTHER ==
[~2021-09-26 15:46] MED LIST changes: +ALBU18HF2 IH; +ASCO-262 PO; +CHOL20002 PO; +CYCL10TA25 PO; -CYCL10TA9 PO; +DEXA6TAB PO; -LISI10TA2 PO; +LISI10TA25 PO; +ONDA-105 PO; +ZINC50TA58 PO
== END 2021-10-14 15:07 | disposition home or self-care (01) ==
PROVIDERS: ATTEND Pain Medicine Interventional Pain Medicine
DX: M51.16 Intervertebral disc disorders with radiculopathy, lumbar region (principal); M47.26 Other spondylosis with radiculopathy, lumbar region; M48.061 Spinal stenosis, lumbar region without neurogenic claudication; M53.3 Sacrococcygeal disorders, not elsewhere classified; I10 Essential (primary) hypertension

== ENCOUNTER 2023-05-23 05:41 | Outpatient (CLI) | payer OTHER ==
[~2023-05-23] VITALS: Ht 172.7 cm; Wt 110.4 kg
[2023-05-24] MEDS ORDERED: MULT-1136 PO (12:02)
[2023-05-24] MEDS ORDERED: LOSA25TA41 PO (12:02)
== END 2023-05-24 12:15 | disposition home or self-care (01) ==
LOC: PREOP 05:41
PROVIDERS: ATTEND Surgery
DX: Z01.818 Encounter for other preprocedural examination (principal)

== ENCOUNTER 2023-06-05 10:23 | Day surgery (SDC) | payer OTHER ==
[~2023-06-05] VITALS: Ht 172.7 cm; Wt 110.4 kg
[~2023-06-05 10:23] MED LIST changes: +LOSA25TA41 PO; +MULT-1136 PO
[2023-06-05] MEDS ORDERED: LACTATED RINGERS 1,000 ML IV STA (10:54)
[2023-06-05] MEDS ORDERED: MIDAZOLAM INJ 2 MG/2 ML VIAL ONE (11:36)
[2023-06-05] MEDS ORDERED: PROPOFOL INJECTION 50 ML IV ONE (11:36)
[2023-06-05 11:51] VITALS: BP 138/83
[2023-06-05 11:55] VITALS: BP 144/82
--- NOTE | 2023-06-05 11:57 | Progress Note-Post Operative ---
Post-Operative Progess Note Surgeon (s)/Gel Coater (s) Surgeon ADAMS VILLAREAL DO Gel Coater: none Pre-Operative Diagnosis hx of polyps Post-Operative Diagnosis colon polyp Procedure & Operative Findings Date of Procedure 06/05/23 Procedure Performed/Findings colonoscopy with hot biopsy and polypectomy x1 Anesthesia Type per MECHANICAL TECH Estimated Blood Loss Estimated blood loss (mL): none Specimens/Packing Specimens Removed cecal polyp ADAMS VILLAREAL DO Jun 05, 2023 11:56
--- NOTE | 2023-06-05 11:58 | Discharge Inst-Simple/Standard ---
Discharge Inst-Standard Patient Instructions/Follow Up Plan of Care/Instructions/FU: yariel 2 weeks Activity as Tolerated: Yes Discharge Diet: Regular Diet ADAMS VILLAREAL DO Jun 05, 2023 11:58
[2023-06-05 12:00] VITALS: BP 120/79
[2023-06-05 12:20] VITALS: BP 120/79
--- NOTE | 2023-06-05 12:33 | Anesthesia-General Post-Op ---
MAC Patient Condition Mental Status/LOC: Same as Preop Cardiovascular: Satisfactory Nausea/Vomiting: Absent Respiratory: Satisfactory Pain: Controlled Complications: Absent Post Op Complications Complications None Follow Up Care/Instructions Patient Instructions None needed. Anesthesiology Discharge Order Discharge Order Patient is doing well, no complaints, stable vital signs, no apparent adverse anesthesia problems. No complications reported per nursing. ALBERT LOPEZ CRNA Jun 05, 2023 12:33
--- NOTE | 2023-06-05 18:23 | OPERATIVE REPORT ---
DATE OF SERVICE: 06/05/2023 PREOPERATIVE DIAGNOSIS: History of polyps. POSTOPERATIVE DIAGNOSIS: Colon polyp, cecum. PROCEDURE: Colonoscopy with hot biopsy polypectomy x1. SURGEON: Adams Almodovar DO ANESTHESIA: Per [employer]. ESTIMATED BLOOD LOSS: None. COMPLICATIONS: None. INDICATIONS: The patient is a 53-year-old male, he is here for screening colonoscopy. He understands risks and benefits of procedure and wished to proceed. Consent was signed in chart. DESCRIPTION OF PROCEDURE: The patient was taken to endoscopy suite, placed in left lateral recumbent position. Timeout was performed. Digital rectal exam was performed. No palpable polyps, masses or ulcerations. Scope was inserted in the rectum, advanced all the way to the cecum with minimal difficulty. Prep was adequate with irrigation and suctioned. Cecum had a small polyp, which hot biopsy polypectomy was performed. Scope was then continuously retracted back. No polyps, masses or ulcerations in the ascending, transverse, descending and sigmoid colon. Once in the rectum, scope was retroflexed, noting no other pathology. Scope was returned to its normal position, slowly withdrawn until completely removed. The patient tolerated the procedure well without any complications, taken to recovery room in stable condition. RECOMMENDATIONS: The patient will need repeat colonoscopy in 5 years. Any issues before that, he will be seen at that time. Follow up on pathology in 2 weeks. Job ID: [id number] DocumentID: [id number] Dictated Date: 06/05/2023 11:55:46 Manager [employer] Date: 06/05/2023 18:22:00 Dictated By: ADAMS ALMODOVAR DO
== END 2023-06-05 12:30 | disposition home or self-care (01) ==
LOC: ENDO 10:23
PROVIDERS: ATTEND Surgery
DX: Z12.11 Encounter for screening for malignant neoplasm of colon (principal); D12.0 Benign neoplasm of cecum; E66.9 Obesity, unspecified; G47.33 Obstructive sleep apnea (adult) (pediatric); Z99.81 Dependence on supplemental oxygen; Z68.37 Body mass index [BMI] 37.0-37.9, adult; Z28.310 Unvaccinated for COVID-19
CPT/HCPCS: 88305